=== PATIENT | male | born 1985 | race Caucasian/White ===

== ENCOUNTER → 2016-09-16 | Outpatient (CLI) | payer BC ==
[2016-09-16 12:24] LABS: BASO % 0.8 %; BASO ABS # 0.06 K/uL (0-0.2); COMPLETE YES; EOS % 5.4 %; HEMATOCRIT 47.1 % (42-52); IG% 0.3 %; LYMPH % 25.8 %; LYMPH ABS # 1.91 K/uL (1.2-3.4); MEAN CELL VOLUME 87.1 fL (80-100); MEAN CORPUSCULAR HEMOGLOBIN 29.2 pg (25-34); MEAN CORPUSCULAR HGB CONC 33.5 g/dl (32-36); MEAN PLATELET VOLUME 9.7 fL (7.4-10.4); NEUT % 59.7 %; PLATELET COUNT 259 K/uL (130-400); RED BLOOD COUNT 5.41 M/uL (4.7-6.1); WHITE BLOOD COUNT 7.41 K/uL (4.8-10.8)
[2016-09-16 12:58] LABS: ALT/SGPT 31 U/L (12-78); BLOOD UREA NITROGEN 21 mg/dl (7-18); BUN/CREATININE RATIO 17.6 (10-20); CARBON DIOXIDE 27 mmol/L (21-32); CHLORIDE 108 mmol/L (98-107); CHOLESTEROL 150 mg/dl (0-200); GLUCOSE 90 mg/dl (70-99); POTASSIUM 4.4 mmol/L (3.5-5.1); SODIUM 143 mmol/L (136-145); TRIGLYCERIDES 138 mg/dl (0-150); VERY LOW DENSITY LIPOPROT CALC 28 mg/dl
[2016-09-16 13:10] LABS: CALCIUM 9.6 mg/dl (8.5-10.1)
[2016-09-16 13:22] LABS: ALB/GLOB RATIO 0.8 (0.9-2); ALKALINE PHOSPHATASE 48 U/L (45-117); AST/SGOT 14 U/L (15-37); CHOLESTEROL/HDL RATIO 4.7; HDL CHOLESTEROL 32 mg/dl; LDL CHOLESTEROL CALCULATED 90 mg/dl; PROSTATE SPECIFIC ANTIGEN 0.448 ng/ml (0.000-4.000)
== END | disposition home or self-care (01) ==
LOC: C.LABPBG 08:25
PROVIDERS: ATTEND Neuromusculoskeletal Medicine & OMM
DX: Z00.00 Encounter for general adult medical examination without abnormal findings (principal); R61 Generalized hyperhidrosis; N41.9 Inflammatory disease of prostate, unspecified

== ENCOUNTER → 2017-01-16 | Outpatient (CLI) | payer BC ==
[2017-01-16 17:19] LABS: BASO % 0.9 %; BASO ABS # 0.09 K/uL (0-0.2); COMPLETE YES; EOS % 3.4 %; HEMATOCRIT 44.2 % (42-52); IG% 0.3 %; LYMPH % 20.8 %; MEAN CELL VOLUME 85.3 fL (80-100); MEAN CORPUSCULAR HEMOGLOBIN 30.1 pg (25-34); MEAN CORPUSCULAR HGB CONC 35.3 g/dl (32-36); MEAN PLATELET VOLUME 9.3 fL (7.4-10.4); MONO % 9.7 %; NEUT % 64.9 %; PLATELET COUNT 280 K/uL (130-400); RED BLOOD COUNT 5.18 M/uL (4.7-6.1); WHITE BLOOD COUNT 10.58 K/uL (4.8-10.8)
== END | disposition home or self-care (01) ==
LOC: C.LABPBG 14:20
PROVIDERS: ATTEND Family Medicine
DX: M79.673 Pain in unspecified foot (principal); M79.89 Other specified soft tissue disorders

== ENCOUNTER 2019-04-16 10:23 | Inpatient (IN) ==
[2019-04-16] MEDS ORDERED: METOCLOPRAMIDE HCL INJ 5 MG/ML 2 ML VIAL IV STA (10:50)
[2019-04-16] MEDS ORDERED: DiphenhydrAMINE HCL 50 MG/ML VIAL IV STA ×2 (10:50→14:27)
[2019-04-16] MEDS ORDERED: ACETAMINOPHEN 1,000 MG/100 ML VIAL IV STA (10:50)
[2019-04-16] MEDS ORDERED: SODIUM CHLORIDE 0.9% 1000ML 1,000 ML IV SCH (11:00)
[2019-04-16 11:18] LABS: Basophils # (auto) 0.08 K/uL (0-0.2); Basophils % (auto) 0.6 %; Eosinophils % (auto) 0.8 %; Hematocrit (blood only) 45.1 % (42-52); Hemoglobin 16.3 g/dL (14.0-18.0); Immature Granulocytes # (auto) 0.07 K/uL (0.00-0.02); Immature Granulocytes % (auto) 0.6 %; Lymphocytes % (auto) 24.8 %; Mean Corpuscular Hemoglobin 30.7 pg (25-34); Mean Corpuscular Hgb Conc 36.1 g/dL (32-36); Mean Corpuscular Volume 84.9 fL (80-100); Monocytes # (auto) 1.08 K/uL (0.11-0.59); Monocytes % (auto) 8.6 %; Neutrophils # (auto) 8.08 K/uL (1.4-6.5); Neutrophils % (auto) 64.6 %; Platelet Count 237 K/uL (130-400); RDW Coefficient of Variation 13.3 % (11.5-14.5); Red Blood Count 5.31 M/uL (4.7-6.1); White Blood Count 12.51 K/uL (4.8-10.8)
--- NOTE | 2019-04-16 11:21 | Emergency Department Note ---
History of Present Illness General Chief Complaint: Headache Stated Complaint: SEVERE HEADACHE Source: patient Mode of arrival: ambulatory Limitations: no limitations History of Present Illness Provider complaint: + headache Onset (ago): day(s) 5 Onset description: + sudden, + at rest and + awoke with symptoms Location: + frontal and + neck Severity: severe Maximum Pain Intensity: 10 Current Pain Intensity: 10 Quality: + aching, + throbbing, + steady, + constant, + different than previous headaches and + worst headache of life Relieved By: + nothing Exacerbated By: + exertion, + movement of head/neck, + light and + noise Context: + occurred at rest Associated symptoms: + nausea, + photophobia and + sensitivity to sound Treatments prior to arrival: + other (Steroids) This 33-year-old male patient presents emergency department today, ambulatory, complaining of a severe headache which began on . The patient states that his now associated with tunnel vision and he is having difficulty ambulating due to the pain. He states the headache radiates from the front and behind his eyes to his neck and has been the same since and has not really changed or improved. He has been on a steroid course and has not improved either. The patient was seen as an outpatient today by his PCP and sent to the ED for further evaluation due to the ongoing symptoms. He denies any trauma or injury, but has been seeing a chiropractor for the last month. He most recently saw the chiropractor for an adjustment on Monday with the headache beginning on . The patient denies any fever or recent illness. He has had some mild congestion and nausea associated with the headache. Paris johnson has been using Tylenol without relief. He denies any history of drug use. He indicates that he did not experience significant improvement with migraine cocktails previously. Home Medications Home Medications Medication Instructions Recorded Confirmed Type ondansetron HCl [Zofran] 4 mg PO TID PRN 5 Days #15 tab 04/13/19 04/16/19 Rx prednisone See Rx Instructions .ROUTE 04/13/19 04/16/19 Rx .COMPLEX 4 Days #6 tab acetaminophen [Tylenol] 325 mg PO QID PRN 04/16/19 04/16/19 History allopurinol 300 mg PO QAM 04/16/19 04/16/19 History escitalopram oxalate 10 mg PO QAM 04/16/19 04/16/19 History sumatriptan succinate 50 mg tablet See Rx Instructions PO .COMPLEX 04/16/19 04/16/19 Rx #14 tab Allergies Allergy/AdvReac Type Severity Reaction Status Date / Time No Known Allergies Allergy Verified 04/16/19 10:36 Past Med/Surg History Medical History Anxiety (Chronic) Depression (Chronic) GERD (gastroesophageal reflux disease) (Chronic) Gout (Chronic) Gout (Chronic) Migraine Pneumothorax (Chronic) Thyromegaly (Chronic) Surgical History History of appendectomy History of chest tube placement (Chronic) History of chest tube placement Social History Preferred Language: [place] Ver[place]an Communication Ability: Effective Visual Impairment: No Limitations Hearing Ability: Normal Nitrator Operator Required: No Beliefs That Will Affect Care: None marital status: Single Current Living Situation: Significant Other Current Living Situation Comment: Fiance current occupational status: employed current occupation: bilingual office assistant Feels Safe at Home: Yes Safety Concerns: Feels Safe At This Time Smoking Status: Never smoker Hx Alcohol Use: Yes Alcohol type: beer Hx Substance Use: No Childhood Exposure to Second-Hand Smoke: Yes Dental Care, Regularly: No Physical Activity Frequency: 1-2 Times per Week Seatbelt Use: always Review of Systems A total of 10 systems reviewed and were otherwise negative Physical Exam Vital Signs Vital Signs - 24 hr 04/16/19 10:24 04/16/19 11:32 04/16/19 11:34 Temperature 36.9 C Temperature Source Oral Pulse Rate 62 73 Pulse Rate [Left] 56 L Pulse Rate from SpO2 Sensor 67 Pulse Rhythm [Left] Regular Respiratory Rate 18 17 Respiratory Effort / Characteristics Non-Labored Respiratory Depth Normal Respiratory Pattern Regular Blood Pressure 153/82 H 136/82 Blood Pressure [Left Arm] 136/82 Blood Pressure Mean 105 97 Blood Pressure Mean [Left Arm] 100 Pulse Oximetry 98 97 99 Oxygen Delivery Method Room Air Room Air Room Air Sepsis Recent Fever Within 48 Hours No Sepsis New/Unexplained Change in Mental Status No Sepsis Action Taken by Nursing No Action Required 04/16/19 12:03 04/16/19 12:30 04/16/19 13:00 Temperature Temperature Source Pulse Rate 67 54 L 54 L Pulse Rate [Left] Pulse Rate from SpO2 Sensor 63 53 L 55 L Pulse Rhythm [Left] Respiratory Rate 22 18 18 Respiratory Effort / Characteristics Respiratory Depth Respiratory Pattern Blood Pressure 142/79 H 136/81 137/82 Blood Pressure [Left Arm] Blood Pressure Mean 91 90 94 Blood Pressure Mean [Left Arm] Pulse Oximetry 98 97 96 Oxygen Delivery Method Sepsis Recent Fever Within 48 Hours Sepsis New/Unexplained Change in Mental Status Sepsis Action Taken by Nursing 04/16/19 13:15 04/16/19 14:27 04/16/19 14:30 Temperature Temperature Source Pulse Rate 57 L 68 81 Pulse Rate [Left] Pulse Rate from SpO2 Sensor 57 L 67 Pulse Rhythm [Left] Respiratory Rate 18 20 15 Respiratory Effort / Characteristics Respiratory Depth Respiratory Pattern Blood Pressure 139/85 145/95 H 143/96 H Blood Pressure [Left Arm] Blood Pressure Mean 93 103 105 Blood Pressure Mean [Left Arm] Pulse Oximetry 97 95 Oxygen Delivery Method Sepsis Recent Fever Within 48 Hours Sepsis New/Unexplained Change in Mental Status Sepsis Action Taken by Nursing 04/16/19 15:00 04/16/19 15:30 04/16/19 16:00 Temperature Temperature Source Pulse Rate 68 67 82 Pulse Rate [Left] Pulse Rate from SpO2 Sensor 70 67 85 Pulse Rhythm [Left] Respiratory Rate 17 17 17 Respiratory Effort / Characteristics Respiratory Depth Respiratory Pattern Blood Pressure 134/87 Blood Pressure [Left Arm] Blood Pressure Mean 98 Blood Pressure Mean [Left Arm] Pulse Oximetry 96 96 96 Oxygen Delivery Method Sepsis Recent Fever Within 48 Hours Sepsis New/Unexplained Change in Mental Status Sepsis Action Taken by Nursing 04/16/19 17:21 04/16/19 17:22 04/16/19 17:30 Temperature Temperature Source Pulse Rate 75 98 H 60 Pulse Rate [Left] Pulse Rate from SpO2 Sensor 77 95 H 62 Pulse Rhythm [Left] Respiratory Rate 22 21 19 Respiratory Effort / Characteristics Respiratory Depth Respiratory Pattern Blood Pressure 140/88 144/85 H Blood Pressure [Left Arm] Blood Pressure Mean 109 100 Blood Pressure Mean [Left Arm] Pulse Oximetry 95 95 97 Oxygen Delivery Method Sepsis Recent Fever Within 48 Hours Sepsis New/Unexplained Change in Mental Status Sepsis Action Taken by Nursing 04/16/19 18:00 04/16/19 18:30 Temperature Temperature Source Pulse Rate 72 77 Pulse Rate [Left] Pulse Rate from SpO2 Sensor 66 73 Pulse Rhythm [Left] Respiratory Rate 18 24 Respiratory Effort / Characteristics Respiratory Depth Respiratory Pattern Blood Pressure 142/90 H 153/89 H Blood Pressure [Left Arm] Blood Pressure Mean 108 110 Blood Pressure Mean [Left Arm] Pulse Oximetry 96 96 Oxygen Delivery Method Sepsis Recent Fever Within 48 Hours Sepsis New/Unexplained Change in Mental Status Sepsis Action Taken by Nursing Constitutional WD/WN, vitals as above Eyes PERRL, conjunctivae normal, anicteric sclerae normal accommodation and EOM intact bilaterally; no nystagmus ENMT external ear and nose normal, oropharynx normal Neck trachea midline, no thyromegaly no nuchal rigidity Respiratory normal respiratory effort, lungs clear to auscultation Auscultation: no crackles, no rales, no rhonchi and no wheezes Cardiovascular RRR, no murmur, no edema Heart Sounds: no gallop and no cardiac rub Vessels: no JVD Gastrointestinal (Abdomen) normal bowel sounds, soft, nontender, no hepatosplenomegaly Percussion/Palpation: no guarding Musculoskeletal no cyanosis or clubbing, extremities motor strength 5/5 Head/Neck/Chest: head atraumatic and neck supple Extremities: strength 5/5 throughout Gait: normal gait Skin no rashes, warm and dry no lesions, no ecchymosis and no erythema Neurologic PERRL, EOMI, accommodation nl, no face palsy, no dysarthria normal light touch, pain and propriocept, CN's II-XI intact bilaterally, deep tendon reflexes 2+ bilaterally and moves all extremities Speech / Cognition: normal speech Psychiatric A+Ox3, euthymic affect Orientation: cooperative Lymphatic no lymphadenopathy Course The patient was seen and evaluated as above. Previous medical records reviewed. IV access obtained, labs drawn. Patient medicated with IV fluids, Benadryl, Reglan, IV acetaminophen Imaging performed and reviewed by myself and radiologist as above. Labs reviewed by myself. I discussed the findings with the patient at bedside. He reports no improvement in his symptoms. I discussed the case with my attending. He recommends MR imaging to evaluate for cerebral vein thrombosis. Patient was medicated with 5 mg IV Haldol in 500 cc IV fluids. MRI performed. This was reviewed by myself and radiologist as noted. I discussed the findings with the patient at bedside. The patient was medicated with IV diphenhydramine and morphine. I again discussed the case with my attending physician, recommending lumbar puncture. He did see and evaluate the patient. LP performed by Dr. Terry. See procedure note. Pt. was reassessed and notes pain is now 2/10. He is feeling much better. I did receive a call from the ED charge nurse regarding critical result of el evated white blood cell count on the CSF. I discussed the case again with Dr. terry. We did elect to empirically treat for meningitis while awaiting cultures. I discussed the case and antibiotic regimen recommended with the ED pharmacist, Shruti. Blood cultures ordered. Viral testing including HSV ordered off of the CSF. Lyme ordered off of the CSF. The patient was medicated with IV Decadron, ce ftriaxone, and vancomycin. I discussed the case with Dr. Clark, [facility] hospitalist physician. He did agree to see and evaluate the patient. Please see hospitalist dictation regarding ongoing management and care of this patient. Administered Medications Acetaminophen (Tylenol) 650 mg PO Q4HWA FÉLIX Stop: 05/16/19 19:59 Last Admin: 04/16/19 20:45 Dose: 650 mg Documented by: [id number] Acyclovir Sodium 800 mg/ (Dextrose) 266 mls @ 250 mls/hr IV Q8H FÉLIX; Protocol Stop: 04/26/19 19:59 Last Infusion: 04/17/19 05:39 Dose: 0 mls/hr Documented by: [id number] Admin: 04/17/19 04:33 Dose: 250 mls/hr Documented by: [id number] Infusion: 04/16/19 22:01 Dose: 0 mls/hr Documented by: [id number] Admin: 04/16/19 20:45 Dose: 250 mls/hr Documented by: [id number] Dextrose/Sodium Chloride (D5w And Nss) 1,000 mls @ 125 mls/hr IV .Q8H FÉLIX Stop: 05/16/19 19:59 Last Admin: 04/17/19 04:33 Dose: 125 mls/hr Documented by: [id number] Infusion: 04/17/19 04:33 Dose: 125 mls/hr Documented by: [id number] Admin: 04/16/19 20:45 Dose: 125 mls/hr Documented by: [id number] Ketorolac Tromethamine (Toradol) 30 mg IV Q6H PRN PRN Reason: Pain Stop: 04/21/19 20:53 Last Admin: 04/16/19 21:23 Dose: 30 mg Documented by: [id number] Morphine Sulfate (Morphine Sulfate) 4 mg IV Q4H PRN PRN Reason: Pain Stop: 04/30/19 17:50 Last Admin: 04/17/19 05:37 Dose: 4 mg Documented by: [id number] Admin: 04/16/19 22:05 Dose: 4 mg Documented by: [id number] Zolpidem Tartrate (Ambien) 5 mg PO HS PRN PRN Reason: Sleep Stop: 05/16/19 21:37 Last Admin: 04/16/19 23:01 Dose: 5 mg Documented by: [id number] Discontinued Medications Dexamethasone Sodium Phosphate (Decadron Pf) 10 mg IV NOW ONE Stop: 04/16/19 17:36 Last Admin: 04/16/19 18:11 Dose: 10 mg Documented by: [id number] Diphenhydramine HCl (Benadryl) 25 mg IV NOW STA Stop: 04/16/19 10:51 Last Admin: 04/16/19 11:20 Dose: 25 mg Documented by: [id number] Diphenhydramine HCl (Benadryl) 12.5 mg IV NOW STA Stop: 04/16/19 14:28 Last Admin: 04/16/19 15:03 Dose: 12.5 mg Documented by: [id number] Gadobutrol (Gadavist 65ml) 9 ml IV ONCE PRN PRN Reason: Interaction Checking Stop: 04/20/19 14:07 Last Admin: 04/16/19 14:09 Dose: 9 ml Documented by: [id number] Sodium Chloride (Nss 1000ml) 1,000 mls @ 999 mls/hr IV .Q1H1M FÉLIX Stop: 04/16/19 12:00 Last Infusion: 04/16/19 12:34 Dose: 0 mls/hr Documented by: [id number] Admin: 04/16/19 11:22 Dose: 999 mls/hr Documented by: [id number] Acetaminophen (Ofirmev) 1,000 mg in 100 mls @ 400 mls/hr IV NOW STA Stop: 04/16/19 11:04 Last Infusion: 04/16/19 12:02 Dose: 0 mls/hr Documented by: [id number] Admin: 04/16/19 11:20 Dose: 400 mls/hr Documented by: [id number] Haloperidol Lactate 5 mg/ (Sodium Chloride) 501 mls @ 999 mls/hr IV NOW STA Stop: 04/16/19 12:53 Last Infusion: 04/16/19 13:14 Dose: 0 mls/hr Documented by: [id number] Admin: 04/16/19 12:41 Dose: 999 mls/hr Documented by: [id number] Ceftriaxone Sodium (Rocephin) 2,000 mg in 70 mls @ 140 mls/hr IV NOW STA Stop: 04/16/19 18:04 Last Infusion: 04/16/19 18:42 Dose: 0 mls/hr Documented by: [id number] Admin: 04/16/19 18:11 Dose: 140 mls/hr Documented by: [id number] Vancomycin HCl 1,750 mg/ (Sodium Chloride) 535 mls @ 200 mls/hr IV NOW ONE Stop: 04/16/19 20:15 Last Infusion: 04/16/19 22:02 Dose: 0 mls/hr Documented by: [id number] Admin: 04/16/19 18:57 Dose: 200 mls/hr Documented by: [id number] Ioversol (Optiray 320 125ml) 120 ml IV ONCE PRN PRN Reason: Interaction Checking Stop: 04/20/19 11:46 Last Admin: 04/16/19 11:48 Dose: 120 ml Documented by: [id number] Lidocaine HCl (Buffered Lidocaine 1%) Confirm Administered Dose 20 ml INFIL .STK-MED ONE Stop: 04/16/19 15:13 Last Admin: 04/16/19 17:15 Dose: 20 ml Documented by: [id number] Metoclopramide HCl (Reglan) 10 mg IV NOW STA Stop: 04/16/19 10:51 Last Admin: 04/16/19 11:20 Dose: 10 mg Documented by: [id number] Morphine Sulfate (Morphine Sulfate) 4 mg IV NOW STA Stop: 04/16/19 14:26 Last Admin: 04/16/19 15:03 Dose: 4 mg Documented by: [id number] Zolpidem Tartrate (Ambien) 5 mg PO NOW ONE Stop: 04/17/19 01:54 Last Admin: 04/17/19 02:09 Dose: 5 mg Documented by: [id number] Medical Decision Making Differential Diagnosis + migraine, + tension headache, + subarachnoid hemorrhage, + headache, + meningitis, + sinusitis, + postconcussion syndrome, + normal pressure hydrocephalus, + CVA, + ICH, + SAH, + encephalitis and + tumor Medical Records Attestation: I reviewed the patient's medical records. Home Medications Current Medication List: was personally reviewed by me Laboratory Data Attestation: I reviewed the patient's lab results. Leukocytosis of 12,000. No anemia or thrombocytopenia. ESR mildly elevated at 23. Coags normal. Renal, hepatic function and electrolytes without significant abnormality. Lyme disease testing negative. Magnesium 2.2. Result diagrams: 04/16/19 10:58 04/16/19 10:58 Lab Results 04/16/19 04/16/19 04/16/19 Range/Units 10:58 10:58 10:58 WBC 12.51 H (4.8-10.8) K/uL RBC 5.31 (4.7-6.1) M/uL Hgb 16.3 (14.0-18.0) g/dL Hct 45.1 (42-52) % MCV 84.9 (80-100) fL MCH 30.7 (25-34) pg MCHC 36.1 H (32-36) g/dL RDW Std Deviation 41.0 (36.4-46.3) fL RDW Coeff of Surjit 13.3 (11.5-14.5) % Plt Count 237 (130-400) K/uL MPV 9.0 (7.4-10.4) fL Immature Gran % (Auto) 0.6 % Neut % (Auto) 64.6 % Lymph % (Auto) 24.8 % [place] % (Auto) 8.6 % Eos % (Auto) 0.8 % Baso % (Auto) 0.6 % Immature Gran # (Auto) 0.07 H (0.00-0.02) K/uL Neut # (Auto) 8.08 H (1.4-6.5) K/uL Lymph # (Auto) 3.10 (1.2-3.4) K/uL [place] # (Auto) 1.08 H (0.11-0.59) K/uL Eos # (Auto) 0.10 (0-0.5) K/uL Baso # (Auto) 0.08 (0-0.2) K/uL ESR 23 H (0-14) mm/hr PT 10.5 (9.0-12.0) Seconds INR 1.0 (0.9-1.1) APTT 23.1 (21.0-31.0) Seconds PTT Ratio 0.9 Sodium (136-145) mmol/L Potassium (3.5-5.1) mmol/L Chloride (98-107) mmol/L Carbon Dioxide (21-32) mmol/L Anion Gap (3-11) BUN (7-18) mg/dl Creatinine (0.6-1.4) mg/dl Est Cr Clr Drug Dosing ml/min Est GFR ( Amer) Est GFR (Non-Af Amer) BUN/Creatinine Ratio (10-20) Glucose (70-99) mg/dl Lactate (0.4-2.0) mmol/L Calcium (8.5-10.1) mg/dl Magnesium (1.8-2.4) mg/dl Total Bilirubin (0.2-1) mg/dl AST (15-37) U/L ALT (12-78) U/L Alkaline Phosphatase (45-117) U/L Total Protein (6.4-8.2) gm/dl Albumin (3.4-5.0) gm/dl Globulin (2.5-4.0) gm/dl Albumin/Globulin Ratio (0.9-2) Fld Lyme DNA (PCR) CSF Appearance CSF Color Xanthrochromic CSF WBC (0-5) /uL CSF RBC (0-) /uL CSF Cell Count Tube # CSF Mononuclear WBCs % CSF Chemistry Tube # CSF Glucose (40-70) mg/dl CSF Total Protein (15-45) mg/dl CSF VDRL Lyme Specimen Source Lyme Disease IgG Ab (Negative) Lyme Disease IgM Ab (Negative) 04/16/19 04/16/19 04/16/19 Range/Units 10:58 10:58 10:58 WBC (4.8-10.8) K/uL RBC (4.7-6.1) M/uL Hgb (14.0-18.0) g/dL Hct (42-52) % MCV (80-100) fL MCH (25-34) pg MCHC (32-36) g/dL RDW Std Deviation (36.4-46.3) fL RDW Coeff of Surjit (11.5-14.5) % Plt Count (130-400) K/uL MPV (7.4-10.4) fL Immature Gran % (Auto) % Neut % (Auto) % Lymph % (Auto) % [place] % (Auto) % Eos % (Auto) % Baso % (Auto) % Immature Gran # (Auto) (0.00-0.02) K/uL Neut # (Auto) (1.4-6.5) K/uL Lymph # (Auto) (1.2-3.4) K/uL [place] # (Auto) (0.11-0.59) K/uL Eos # (Auto) (0-0.5) K/uL Baso # (Auto) (0-0.2) K/uL ESR (0-14) mm/hr PT (9.0-12.0) Seconds INR (0.9-1.1) APTT (21.0-31.0) Seconds PTT Ratio Sodium 141 (136-145) mmol/L Potassium 3.8 (3.5-5.1) mmol/L Chloride 110 H (98-107) mmol/L Carbon Dioxide 29 (21-32) mmol/L Anion Gap 2.0 L (3-11) BUN 25 H (7-18) mg/dl Creatinine 1.28 (0.6-1.4) mg/dl Est Cr Clr Drug Dosing 93.6 ml/min Est GFR ( Amer) 85.3 Est GFR (Non-Af Amer) 73.6 BUN/Creatinine Ratio 19.6 (10-20) Glucose 84 (70-99) mg/dl Lactate (0.4-2.0) mmol/L Calcium 9.0 (8.5-10.1) mg/dl Magnesium 2.2 (1.8-2.4) mg/dl Total Bilirubin 0.4 (0.2-1) mg/dl AST 9 L (15-37) U/L ALT 25 (12-78) U/L Alkaline Phosphatase 46 (45-117) U/L Total Protein 8.1 (6.4-8.2) gm/dl Albumin 3.6 (3.4-5.0) gm/dl Globulin 4.5 H (2.5-4.0) gm/dl Albumin/Globulin Ratio 0.8 L (0.9-2) Fld Lyme DNA (PCR) CSF Appearance CSF Color Xanthrochromic CSF WBC (0-5) /uL CSF RBC (0-) /uL CSF Cell Count Tube # CSF Mononuclear WBCs % CSF Chemistry Tube # CSF Glucose (40-70) mg/dl CSF Total Protein (15-45) mg/dl CSF VDRL Lyme Specimen Source Lyme Disease IgG Ab Negative (Negative) Lyme Disease IgM Ab Negative (Negative) 04/16/19 04/16/19 04/16/19 Range/Units 16:22 16:22 16:22 WBC (4.8-10.8) K/uL RBC (4.7-6.1) M/uL Hgb (14.0-18.0) g/dL Hct (42-52) % MCV (80-100) fL MCH (25-34) pg MCHC (32-36) g/dL RDW Std Deviation (36.4-46.3) fL RDW Coeff of Surjit (11.5-14.5) % Plt Count (130-400) K/uL MPV (7.4-10.4) fL Immature Gran % (Auto) % Neut % (Auto) % Lymph % (Auto) % [place] % (Auto) % Eos % (Auto) % Baso % (Auto) % Immature Gran # (Auto) (0.00-0.02) K/uL Neut # (Auto) (1.4-6.5) K/uL Lymph # (Auto) (1.2-3.4) K/uL [place] # (Auto) (0.11-0.59) K/uL Eos # (Auto) (0-0.5) K/uL Baso # (Auto) (0-0.2) K/uL ESR (0-14) mm/hr PT (9.0-12.0) Seconds INR (0.9-1.1) APTT (21.0-31.0) Seconds PTT Ratio Sodium (136-145) mmol/L Potassium (3.5-5.1) mmol/L Chloride (98-107) mmol/L Carbon Dioxide (21-32) mmol/L Anion Gap (3-11) BUN (7-18) mg/dl Creatinine (0.6-1.4) mg/dl Est Cr Clr Drug Dosing ml/min Est GFR ( Amer) Est GFR (Non-Af Amer) BUN/Creatinine Ratio (10-20) Glucose (70-99) mg/dl Lactate (0.4-2.0) mmol/L Calcium (8.5-10.1) mg/dl Magnesium (1.8-2.4) mg/dl Total Bilirubin (0.2-1) mg/dl AST (15-37) U/L ALT (12-78) U/L Alkaline Phosphatase (45-117) U/L Total Protein (6.4-8.2) gm/dl Albumin (3.4-5.0) gm/dl Globulin (2.5-4.0) gm/dl Albumin/Globulin Ratio (0.9-2) Fld Lyme DNA (PCR) Cancelled CSF Appearance CLEAR CSF Color COLORLESS Xanthrochromic NONE CSF WBC 14 H* (0-5) /uL CSF RBC 0 (0-) /uL CSF Cell Count Tube # 3 CSF Mononuclear WBCs 100.0 % CSF Chemistry Tube # 1 CSF Glucose 51 (40-70) mg/dl CSF Total Protein 62.4 H (15-45) mg/dl CSF VDRL Lyme Specimen Source Cancelled Lyme Disease IgG Ab (Negative) Lyme Disease IgM Ab (Negative) 04/16/19 04/16/19 Range/Units 16:22 18:06 WBC (4.8-10.8) K/uL RBC (4.7-6.1) M/uL Hgb (14.0-18.0) g/dL Hct (42-52) % MCV (80-100) fL MCH (25-34) pg MCHC (32-36) g/dL RDW Std Deviation (36.4-46.3) fL RDW Coeff of Surjit (11.5-14.5) % Plt Count (130-400) K/uL MPV (7.4-10.4) fL Immature Gran % (Auto) % Neut % (Auto) % Lymph % (Auto) % [place] % (Auto) % Eos % (Auto) % Baso % (Auto) % Immature Gran # (Auto) (0.00-0.02) K/uL Neut # (Auto) (1.4-6.5) K/uL Lymph # (Auto) (1.2-3.4) K/uL [place] # (Auto) (0.11-0.59) K/uL Eos # (Auto) (0-0.5) K/uL Baso # (Auto) (0-0.2) K/uL ESR (0-14) mm/hr PT (9.0-12.0) Seconds INR (0.9-1.1) APTT (21.0-31.0) Seconds PTT Ratio Sodium (136-145) mmol/L Potassium (3.5-5.1) mmol/L Chloride (98-107) mmol/L Carbon Dioxide (21-32) mmol/L Anion Gap (3-11) BUN (7-18) mg/dl Creatinine (0.6-1.4) mg/dl Est Cr Clr Drug Dosing ml/min Est GFR ( Amer) Est GFR (Non-Af Amer) BUN/Creatinine Ratio (10-20) Glucose (70-99) mg/dl Lactate 1.1 (0.4-2.0) mmol/L Calcium (8.5-10.1) mg/dl Magnesium (1.8-2.4) mg/dl Total Bilirubin (0.2-1) mg/dl AST (15-37) U/L ALT (12-78) U/L Alkaline Phosphatase (45-117) U/L Total Protein (6.4-8.2) gm/dl Albumin (3.4-5.0) gm/dl Globulin (2.5-4.0) gm/dl Albumin/Globulin Ratio (0.9-2) Fld Lyme DNA (PCR) CSF Appearance CSF Color Xanthrochromic CSF WBC (0-5) /uL CSF RBC (0-) /uL CSF Cell Count Tube # CSF Mononuclear WBCs % CSF Chemistry Tube # CSF Glucose (40-70) mg/dl CSF Total Protein (15-45) mg/dl CSF VDRL Cancelled Lyme Specimen Source Lyme Disease IgG Ab (Negative) Lyme Disease IgM Ab (Negative) Imaging Data Radiologist's Impression: CT angio head wo/w, CT angio neck with con HISTORY: 33 years-old Male Headache, neck pain acute headache with neck pain COMPARISON: None available TECHNIQUE: Noncontrast CT of the head was obtained. Additionally, CTA of the head and neck was obtained following the intravenous ministration of 120 mL Optiray 320 IV contrast. 3-D coronal and sagittal MIPS were obtained from the ial data set and were submitted for review. All measurements were obtained according to NASCET criteria. A dose lowering technique was used consistent with the principals of LINNEA. FINDINGS: CT HEAD: No acute intracranial hemorrhage, midline shift, abnormal extra axial collection, acute territorial infarct, hydrocephalus or intracranial mass. No acute calvarial fracture. Aftercare cells and paranasal sinuses are clear. Soft tissues and orbits are unremarkable. CTA HEAD AND NECK: The heart appears be upper limits of normal in size. The imaged opacified pulmonary arterial tree is unremarkable. Three-vessel morphology of aortic arch. Patency of the imaged subclavian arteries. Patent and normal-appearing bilateral common carotid arteries. The bilateral internal carotid arteries are widely patent and within normal limits. The bilateral middle and anterior cerebral arteries appear normal and are patent. Codominant and patent vertebral arteries. The basilar and posterior cerebral arteries are patent and unremarkable. There is no aneurysm, dissection, high- grade stenosis or proximal branch occlusion. Cerebral venous sinuses are patent. There is no abnormal intracranial enhancement identified. The imaged lung apices appear clear without pneumothorax. Unremarkable thyroid. Soft tissues of the neck are unremarkable. Airway appears to be patent. Mild sigmoidal bowing of the nasal septum. Mastoid air cells are clear. Mild mucosal thickening of the maxillary sinuses. Mild uncovertebral spurring of the cervical spine. IMPRESSION: 1. No acute intracranial abnormality. 2. Unremarkable CTA of the head and neck without aneurysm, dissection, high- grade stenosis or proximal branch occlusion. ACT 112: Negative or not required by law. The above report was generated using voice recognition software. It may contain grammatical, syntax or spelling errors. Electronically signed by: Ernst Lovett M.D. 04/16/2019 12:02 PM MR venography head wo con CLINICAL HISTORY: 33 years-old Male presenting with severe headaches for 6 days. TECHNIQUE: MR venography (angiography) of the head was performed without the use of intravenous contrast using 3-D [id number] technique. 3-D volumetric and/or maximum intensity projection (MIP) images were subsequently reconstructed for review. IV contrast: None. Stenosis measurements were based on NASCET-like criteria. COMPARISON: CT head from earlier the same day. FINDINGS: Localizer images: Unremarkable. Normal flow related enhancement in the superior sagittal, straight, transverse, and sigmoid dural venous sinuses. Normal flow related enhancement in the jugular bulbs. Flow related enhancement also evident in the deep cerebral veins including the internal cerebral veins, basal veins of Brittany, and vein of Petros. Flow related enhancement also evident and cortical veins. Limited evaluation of the brain parenchyma within normal limits. IMPRESSION: 1. No evidence of cerebral vein thrombosis. ACT 112: Negative or not required by law. Electronically signed by: Ryan Trivedi M.D. 04/16/2019 2:12 PM MR brain wo/w con HISTORY: 33 years-old Male acute headache acute severe headache COMPARISON: MRV of same day, CTA head neck of same day TECHNIQUE: Multiplanar multisequence MRI of the brain was obtained both with and without the use of 9.0 mL Gadavist FINDINGS: Vat Overhauler localizer images demonstrate no gross extracranial abnormality. There is no restricted diffusion to suggest acute or subacute infarction. Midline structures including the corpus callosum, brainstem, optic chiasm, pituitary and pineal glands appear unremarkable on the sagittal T1 series. There is no cerebellar tonsillar herniation. Imaged cervical spine is unremarkable. Mild enlargement of the adenoid tonsils. Study is mildly motion degraded. No acute intracranial hemorrhage, midline shift, abnormal extra axial collection, hydrocephalus or intracranial mass. No significant T2/FLAIR signal abnormalities of the brain parenchyma identified. No abnormal intra-axial or extra-axial enhancement. The major flow voids at the level of the skull base appear patent. Mastoid air cells are clear. Minimal mucosal thickening of the ethmoid air cells, maxillary sinuses and nasal terminates. Mild rightward bowing and spurring of the nasal septum. The orbits, skull and soft tissues are unremarkable. IMPRESSION: 1. No acute intracranial abnormality. 2. No abnormal enhancement. ACT 112: Negative or not required by law. The above report was generated using voice recognition software. It may contain grammatical, syntax or spelling errors. Electronically signed by: Ernst Lovett M.D. 04/16/2019 2:15 PM Blood Pressure Blood Pressure Findings: Elevated blood pressure Blood Pressure Disposition: elevated BP felt to be situational Head Trauma GCS Score: 15 MDM Narrative This 33-year-old male patient presents emergency department today due to intractable headache for the past 5 days. Patient has been afebrile. He denies any infectious symptoms. He is been to the emergency department 3 times in the past 5 days and has not experienced any relief with migraine cocktails of multiple rounds of medications. The patient had an extensive work-up here in [facility] ED including labs and imaging. He has been seeing a chiropractor, so we did elect to initiate CT imaging to evaluate for dissection. This was negative. Patient was sent for MRI to evaluate for cerebral vein thrombosis or other acute intracranial abnormality. This was negative. The patient's pain did not respond to migraine cocktail, Haldol, or IV fluids. Ultimately, we did elect to perform a lumbar puncture to further evaluate the migraine. This did show an elevated white blood cell count of 14. There was no blood to indicate subarachnoid hemorrhage. Protein was mildly elevated. And concern for possible meningitis, likely viral etiology, however the patient will be empirically st arted on antibiotics and placed on precautions. He will be admitted to the hospitalist service for antibiotic treatment at this time while awaiting cultures. Please see hospitalist dictation regarding ongoing management care of this patient. The chart was completed utilizing ProTip Speech voice recognition software. Grammatical errors, random word insertions, pronoun errors, and incomplete sent ences are an occasional consequence of this system due to software limitations, ambient noise, and hardware issues. Any formal questions or concerns about the content, text, or information contained within the body of this dictation should be directly addressed to the provider for clarification. Impression & Plan Meningitis, Headache, Acute neck pain Discharge Plan Visit Data *Final* Discharge Date/Time: 04/16/19 19:19 Chief Complaint: Headache Stated Complaint: SEVERE HEADACHE ED Provider: Sin Terry ED Midlevel Provider: Karla Diaz Discharge Problem: Meningitis, Headache, Acute neck pain Patient Disposition: Admitted As Inpatient Condition: Good Discharge Instructions Interventions: ED Discharge Assessment Last Done: 04/16/19 19:19 Discharge Problem: Headache Qualifiers: Headache type: unspecified Headache chronicity pattern: acute headache Intractability: intractable Qualified Code(s): R51 - Headache
[2019-04-16 11:31] LABS: Partial Thromboplastin Ratio 0.9; Partial Thromboplastin Time 23.1 Seconds (21.0-31.0); Prothrombin Time 10.5 Seconds (9.0-12.0)
[2019-04-16 11:40] LABS: Albumin Level 3.6 gm/dl (3.4-5.0); BUN Creatinine Ratio 19.6 (10-20); Creatinine Clr Calc Pharmacy 93.6 ml/min; Est GFR (African American) 85.3; Est GFR (Non-African American) 73.6; Potassium 3.8 mmol/L (3.5-5.1)
[2019-04-16 11:42] LABS: Albumin Globulin Ratio 0.8 (0.9-2); Bilirubin,Total 0.4 mg/dl (0.2-1); Globulin 4.5 gm/dl (2.5-4.0); Total Protein 8.1 gm/dl (6.4-8.2)
[2019-04-16] MEDS ORDERED: OPTIRAY 320 125ml IV PRN (11:47)
--- NOTE | 2019-04-16 12:03 | CT Scan Report ---
CT angio head wo/w, CT angio neck with con HISTORY: 33 years-old Male Headache, neck pain acute headache with neck pain COMPARISON: None available TECHNIQUE: Noncontrast CT of the head was obtained. Additionally, CTA of the head and neck was obtain ed following the intravenous ministration of 120 mL Optiray 320 IV contrast. 3-D coronal and sagittal MIPS were obtained from the axial data set and were submitted for review. All measurements were obta ined according to NASCET criteria. A dose lowering technique was used consistent with the principals of LINNEA. FINDINGS: CT HEAD: No acute intracranial hemorrhage, midline shift, abnormal extra axial collection, acute territorial i nfarct, hydrocephalus or intracranial mass. No acute calvarial fracture. Aftercare cells and paranasa l sinuses are clear. Soft tissues and orbits are unremarkable. CTA HEAD AND NECK: The heart appears be upper limits of normal in size. The imaged opacified pulmonary arterial tree is unremarkable. Three-vessel morphology of aortic arch. Patency of the imaged subclavian arteries. Howell nt and normal-appearing bilateral common carotid arteries. The bilateral internal carotid arteries ar e widely patent and within normal limits. The bilateral middle and anterior cerebral arteries appear normal and are patent. Codominant and patent vertebral arteries. The basilar and posterior cerebral arteries are patent and unremarkable. There is no aneurysm, dissection, high-grade stenosis or proximal branch occlusion. Cer ebral venous sinuses are patent. There is no abnormal intracranial enhancement identified. The imaged lung apices appear clear without pneumothorax. Unremarkable thyroid. Soft tissues of the n emiliana are unremarkable. Airway appears to be patent. Mild sigmoidal bowing of the nasal septum. Mastoid air cells are clear. Mild mucosal thickening of the maxillary sinuses. Mild uncovertebral spurring o f the cervical spine. IMPRESSION: 1. No acute intracranial abnormality. 2. Unremarkable CTA of the head and neck without aneurysm, dissection, high-grade stenosis or proxima l branch occlusion. ACT 112: Negative or not required by law. The above report was generated using voice recognition software. It may contain grammatical, syntax o r spelling errors. Electronically signed by: Ernst Lovett M.D. 04/16/2019 12:02 PM
[2019-04-16 12:09] LABS: Lyme Ab IgG w/WB Rflx Negative (Negative); Lyme Ab IgM w/WB Rflx Negative (Negative)
[2019-04-16] MEDS ORDERED: HALOPERIDOL LACTATE 5 MG in SODIUM CHLORIDE 0.9% 500 ML IV STA (12:23)
[2019-04-16] MEDS ORDERED: GADOBUTROL 65ML VIAL IV PRN (14:08)
--- NOTE | 2019-04-16 14:14 | Magnetic Resonance Report ---
MR venography head wo con CLINICAL HISTORY: 33 years-old Male presenting with severe headaches for 6 days. TECHNIQUE: MR venography (angiography) of the head was performed without the use of intravenous contr ast using 3-D [id number] technique. 3-D volumetric and/or maximum intensity projection (MIP) imag es were subsequently reconstructed for review. IV contrast: None. Stenosis measurements were based on NASCET-like criteria. COMPARISON: CT head from earlier the same day. FINDINGS: Localizer images: Unremarkable. Normal flow related enhancement in the superior sagittal, straight, transverse, and sigmoid dural shaheed ous sinuses. Normal flow related enhancement in the jugular bulbs. Flow related enhancement also evid ent in the deep cerebral veins including the internal cerebral veins, basal veins of Brittany, and v ein of Petros. Flow related enhancement also evident and cortical veins. Limited evaluation of the bra in parenchyma within normal limits. IMPRESSION: 1. No evidence of cerebral vein thrombosis. ACT 112: Negative or not required by law. Electronically signed by: Ryan Trivedi M.D. 04/16/2019 2:12 PM
--- NOTE | 2019-04-16 14:17 | Magnetic Resonance Report ---
MR brain wo/w con HISTORY: 33 years-old Male acute headache acute severe headache COMPARISON: MRV of same day, CTA head neck of same day TECHNIQUE: Multiplanar multisequence MRI of the brain was obtained both with and without the use of 9 .0 mL Gadavist FINDINGS: Slot Machine Key Person localizer images demonstrate no gross extracranial abnormality. There is no restricted diffusio n to suggest acute or subacute infarction. Midline structures including the corpus callosum, brainste m, optic chiasm, pituitary and pineal glands appear unremarkable on the sagittal T1 series. There is no cerebellar tonsillar herniation. Imaged cervical spine is unremarkable. Mild enlargement of the ad enoid tonsils. Study is mildly motion degraded. No acute intracranial hemorrhage, midline shift, abnormal extra axia l collection, hydrocephalus or intracranial mass. No significant T2/FLAIR signal abnormalities of the brain parenchyma identified. No abnormal intra-axial or extra-axial enhancement. The major flow void s at the level of the skull base appear patent. Mastoid air cells are clear. Minimal mucosal thickeni ng of the ethmoid air cells, maxillary sinuses and nasal terminates. Mild rightward bowing and spurri ng of the nasal septum. The orbits, skull and soft tissues are unremarkable. IMPRESSION: 1. No acute intracranial abnormality. 2. No abnormal enhancement. ACT 112: Negative or not required by law. The above report was generated using voice recognition software. It may contain grammatical, syntax o r spelling errors. Electronically signed by: Ernst Lovett M.D. 04/16/2019 2:15 PM
[2019-04-16] MEDS ORDERED: MoRPHine SULFATE 4 MG/ML 1 ML CARP\\VIAL IV STA (14:25)
[2019-04-16] MEDS ORDERED: XYLOCAINE 1%/SOD BICARB 20 ML VIAL INFIL ONE (15:12)
--- NOTE | 2019-04-16 16:46 | Emergency Department Note ---
ED Visit Note HPI: Progressively worsening MCKEON over 5 days. No prior history of formally diagnosed migraines. PE: AFVSS, uncomfortable but in NAD, neck supple. Procedures Lumbar Puncture Time Out Performed: Yes Skin Prep: 0.5% Chlorhexidine/Alcohol Local Anesthetic: lidocaine 1% Amount of anesthesia used (mL): 8 Spinal Needle Gauge: 22G Interspace Used: L4-L5 Opening Pressure (cmH20): 17 Fluid Initially Obtained: clear Complications: none Note: 20 cc of clear CSF collected. CSF Cell count, glucose, Albumin, Gram stain and culture ordered. Plan: CT/CTA head negative. MRI/MRV negative. LP performed by myself per procedure note above. CSF WBC elevated at 14, 100% mononuclear predominance., CSF protein 62.4. Admit. Empiric treatment with CTX and Vancomycin while awaiting cultures. I reviewed the patient's past medical history, medications, and visit nursing notes. I discussed the case with the physician dietetic assistant, examined the patient, and agree with the findings and plan as documented in NATALIO Diaz's note. . : Headache Qualifiers: Headache type: unspecified Headache chronicity pattern: acute headache Intractability: intractable Qualified Code(s): R51 - Headache
[2019-04-16 17:05] LABS: Appearance CSF CLEAR; CSF Count Tube # 3; Color CSF COLORLESS
[2019-04-16 17:06] LABS: Red Blood Cell CSF (A) 0 /uL (0-); Red Blood Cell CSF (B) 0 /uL (0-); White Blood Cell CSF (B) 18 /uL (0-5)
[2019-04-16 17:08] LABS: White Blood Cell CSF (A) 14 /uL (0-5)
[2019-04-16 17:10] LABS: Total Protein CSF 62.4 mg/dl (15-45)
[2019-04-16] MEDS ORDERED: VANCOMYCIN HCL 1,750 MG in SODIUM CHLORIDE 0.9% 500 ML IV ONE (17:35)
[2019-04-16] MEDS ORDERED: DEXAMETHASONE **PF** INJ 10 MG/ML VIAL IV ONE (17:35)
[2019-04-16] MEDS ORDERED: cefTRIAXone SODIUM 2,000 MG/70 ML BAG IV STA (17:35)
[2019-04-16] MEDS ORDERED: VANCOMYCIN CONSULT ACTIVE PRN (17:35)
[2019-04-16] MEDS ORDERED: MoRPHine SULFATE 4 MG/ML 1 ML CARP\\VIAL IV PRN (17:51)
--- NOTE | 2019-04-16 18:44 | History & Physical Report ---
Date of Service April 16, 2019 Assessment & Plan (1) Meningitis: Suspected viral meningitis from CSF sample (see below). HSV, enterovirus pending. Will start on acyclovir. No known immunosuppression. Lyme antibodies negative. VDRL pending but no disseminated rash and this is felt to be very low likelihood. Gram stain negative. WBC CSF 14 (all mononuclear), glucose normal and Total protein only mildly elevated at 62 therefore not suggestive of bacterial meningitis. This along with history makes bacterial meningitis a very low likelihood therefore will discontinue further antibiotics at this time. Culture still pending at this time however. Vanc + ceftriaxone given in ER. Keep in dark room. Minimal disturbances. (2) Headache: Suspect viral meningitis as above but given similarities with his previous migraine this is still a possibility. In addition he has a strong tension headache component with his neck pain for which we will consult PT to assist. Will treat with acetaminophen and NSAIDs (3) Depression: Continue Lexapro (4) Gout: Continue allopurinol History of Present Illness Chief Complaint: Intractable headache Primary Care Provider: DO Sanjeev Heltonzeenat Corona is a 33 year old male with a history of migraines who presented to the ER with severe headache. He reports this is mainly across the front of his head, sometimes pounding, occasionally a constant ache, severity 10/10 when he first came to the ER, now 3/10. It started on and has wax and waned since then but generally getting progressively worse. He went to [facility] initially then the ER here 3 days ago and these were felt to be consistent with his prior migraines and he received various cocktails of antihistamines, steroids and Compazine. He reports morphine has worked the best. In the ER here he received a thorough workup including an LP which showed 15 WBC and therefore was started on vancomycin and ceftriaxone for concern for bacterial meningitis. He reports no rash, fevers or chills and is otherwise well other than his ongoing headache. No weakness or change in sensation in his extremities. He has bilateral but left > right sided neck pain but this is not unusual for him. Allergies Allergy/AdvReac Type Severity Reaction Status Date / Time No Known Allergies Allergy Verified 04/16/19 10:36 Home Medications Home Medications Medication Instructions Recorded Confirmed Type ondansetron HCl [Zofran] 4 mg PO TID PRN 5 Days #15 tab 04/13/19 04/16/19 Rx prednisone See Rx Instructions .ROUTE 04/13/19 04/16/19 Rx .COMPLEX 4 Days #6 tab acetaminophen [Tylenol] 325 mg PO QID PRN 04/16/19 04/16/19 History allopurinol 300 mg PO QAM 04/16/19 04/16/19 History escitalopram oxalate 10 mg PO QAM 04/16/19 04/16/19 History sumatriptan succinate 50 mg tablet See Rx Instructions PO .COMPLEX 04/16/19 04/16/19 Rx #14 tab Past Med/Surg History Medical History Anxiety (Chronic) Depression (Chronic) GERD (gastroesophageal reflux disease) (Chronic) Gout (Chronic) Gout (Chronic) Migraine Pneumothorax (Chronic) Thyromegaly (Chronic) Surgical History History of appendectomy History of chest tube placement (Chronic) History of chest tube placement Social History Preferred Language: Uzbek Communication Ability: Effective Visual Impairment: No Limitations Hearing Ability: Normal Steam Cleaning Machine Operator Required: No Beliefs That Will Affect Care: None marital status: Single Current Living Situation: Significant Other Current Living Situation Comment: Fiance current occupational status: employed current occupation: photographer assistant Feels Safe at Home: Yes Safety Concerns: Feels Safe At This Time Smoking Status: Never smoker Hx Alcohol Use: Yes Alcohol type: beer Hx Substance Use: No Childhood Exposure to Second-Hand Smoke: Yes Dental Care, Regularly: No Physical Activity Frequency: 1-2 Times per Week Seatbelt Use: always Review of Systems Review of Systems: All systems reviewed & are unremarkable except as noted in HPI & below Physical Exam Constitutional: well developed, well nourished and + obese; no acute distress Eyes: PERRL, conjunctivae normal, anicteric sclerae ENMT: external ear and nose normal, oropharynx normal Neck: normal visual inspection and trachea midline Respiratory: normal respiratory effort, lungs clear to auscultation Cardiovascular: RRR, no murmur, no edema Gastrointestinal (Abdomen): normal bowel sounds, soft, nontender, no hepatosplenomegaly Musculoskeletal: no cyanosis or clubbing, extremities motor strength 5/5 Skin: no rashes, warm and dry Neurologic: CN's II-XI intact bilaterally, moves all extremities and awake (in darkened room); no focal motor deficits and not confused Speech / Cognition: normal speech Motor/Sensory: no tremor, no pronator drift and no sensory deficit Kernig/Brudzinski signs were negative. Psychiatric: A+Ox3, euthymic affect Lymphatic: no cervical or axillary lymphadenopathy Results & Data Vital Signs (Past 12 Hours) Vital Signs Temp Pulse Pulse Resp BP BP Pulse Ox 04/16/19 17:30 60 19 144/85 H 97 04/16/19 17:22 98 H 21 140/88 95 04/16/19 17:21 75 22 95 04/16/19 16:00 82 17 96 04/16/19 15:30 67 17 96 04/16/19 15:00 68 17 134/87 96 04/16/19 14:30 81 15 143/96 H 04/16/19 14:27 68 20 145/95 H 95 04/16/19 13:15 57 L 18 139/85 97 04/16/19 13:00 54 L 18 137/82 96 04/16/19 12:30 54 L 18 136/81 97 04/16/19 12:03 67 22 142/79 H 98 04/16/19 11:34 99 04/16/19 11:32 73 56 L 17 136/82 136/82 97 04/16/19 10:24 36.9 C 62 18 153/82 H 98 Code Status & VTE Plan Code Status Full VTE Prophylaxis Plan VTE Prophylaxis will be ordered: No Reason for no VTE drug order: Treatment not indicated Reason for no VTE mechanical prophylaxis: Treatment not indicated PG Care Time/CCT Total # of Minutes Spent Total Time Spent with Patient: Total time spent is greater than 50% in coordination of care (as documented) at patient's floor/unit and/or counseling patient: (1) Gout Chronicity: chronic Gout etiology: unspecified cause Gout site: multiple sites Qualified Code(s): [id number].[id number] - Idiopathic chronic gout, multiple sites, without tophus (tophi) (2) Depression Depression Type: unspecified Qualified Code(s): F32.9 - Major depressive disorder, single episode, unspecified (3) Headache Headache chronicity pattern: acute headache Headache type: unspecified Intractability: intractable Qualified Code(s): R51 - Headache
[2019-04-16] MEDS: ACYCLOVIR SOD 800 MG in DEXTROSE 5% 250 ML IV SCH (20:45)
[2019-04-16] MEDS: D5W AND NSS 1,000 ML IV SCH (20:45)
[2019-04-16] MEDS: ACETAMINOPHEN 325 MG TAB PO SCH (20:45)
[2019-04-16] MEDS: KETOROLAC 30 MG/ML VIAL IV PRN (21:23)
[2019-04-16] MEDS: MoRPHine SULFATE 4 MG/ML 1 ML CARP\\VIAL IV PRN (22:05)
[2019-04-16] MEDS: ZOLPIDEM TARTRATE 5 MG TAB PO PRN (23:01)
[2019-04-17] MEDS ORDERED: ZOLPIDEM TARTRATE 5 MG TAB PO ONE (01:53)
[2019-04-17] MEDS: ACYCLOVIR SOD 800 MG in DEXTROSE 5% 250 ML IV SCH ×3 (04:33→20:40)
[2019-04-17] MEDS: D5W AND NSS 1,000 ML IV SCH ×5 (04:33→20:51)
[2019-04-17] MEDS: KETOROLAC 30 MG/ML VIAL IV PRN ×2 (05:34→21:54)
[2019-04-17] MEDS: MoRPHine SULFATE 4 MG/ML 1 ML CARP\\VIAL IV PRN ×3 (05:37→14:20)
[2019-04-17] MEDS: ESCITALOPRAM OXALATE 10 MG TAB PO SCH (08:18)
[2019-04-17] MEDS: allopurinoL 300 MG TAB PO SCH (08:18)
[2019-04-17] MEDS: ACETAMINOPHEN 325 MG TAB PO SCH ×4 (08:18→20:41)
[2019-04-17 08:40] LABS: Hematocrit (blood only) 43.4 % (42-52); Hemoglobin 15.6 g/dL (14.0-18.0); Immature Granulocytes # (auto) 0.05 K/uL (0.00-0.02); Immature Granulocytes % (auto) 0.3 %; Lymphocytes # (auto) 1.43 K/uL (1.2-3.4); Lymphocytes % (auto) 9.6 %; Mean Corpuscular Hemoglobin 29.7 pg (25-34); Mean Corpuscular Hgb Conc 35.9 g/dL (32-36); Mean Corpuscular Volume 82.7 fL (80-100); Mean Platelet Volume 8.8 fL (7.4-10.4); Monocytes # (auto) 0.77 K/uL (0.11-0.59); Monocytes % (auto) 5.1 %; Neutrophils # (auto) 12.71 K/uL (1.4-6.5); Platelet Count 258 K/uL (130-400); RDW Coefficient of Variation 12.9 % (11.5-14.5); RDW Standard Deviation 38.7 fL (36.4-46.3); Red Blood Count 5.25 M/uL (4.7-6.1); White Blood Count 14.96 K/uL (4.8-10.8)
[2019-04-17 09:02] LABS: BUN Creatinine Ratio 17.1 (10-20); Calcium 9.5 mg/dl (8.5-10.1); Creatinine Clr Calc Pharmacy 118.6 ml/min; Potassium 3.9 mmol/L (3.5-5.1)
[2019-04-17] MEDS: LORazepam 0.5 MG TAB PO PRN ×2 (12:18→20:50)
--- NOTE | 2019-04-17 15:18 | Hospitalist Progress Note ---
Date of Service April 17, 2019 Assessment & Plan (1) Meningitis: - Suspected viral meningitis based on CSF sample (WBC 14, Total protein 62.4, normal glucose level). - HSV, Lyme, Enterovirus, Herpes virus, VDRL via CSF pending; gram stain and culture via CSF also pending. - Leukocytosis noted on labs; has been afebrile, normotensive. - Received IV abx in the ER, will hold further doses due to low likelihood of bacterial infection; receiving Acyclovir IV empirically. - On IV fluids at 125 cc/hr. - Continue to monitor, consider neurology consult. (2) Headache: - Likely related to viral meningitis vs. migraine. - May also have component of tension headache -- PT consulted for stretching exercises. - Tylenol q4hr scheduled; Toradol and Morphine prn. (3) Depression: - Continue Lexapro as prescribed. - Ativan prn hospital related anxiety. (4) Gout: - Continue allopurinol as prescribed. DVT ppx: Encourage ambulation. Dispo: Med/surg for treatment of viral meningitis. Supervising Physician Co-Signing Physician Notes Attending Attestation - Chart reviewed in detail, care plan d/w PA Amaris Posey. I agree w/ the rojas components of her documentation. 33yo male with likely viral meningitis. CSF culture thus far negative. Main issue is that of headache - suspect combination of headache from the meningitis itself as well as a migraine. Plan as per Ms Posey. Vitals/labs remain stable. Perry Brizuela MD Subjective Pt. reports headache is slightly improved today. C/o neck stiffness, bilateral in occipital area. Denies chest pain, SOB, fever/chills, N/V. Will continue treatment for viral meningitis. Review of Systems Review of Systems: All systems reviewed & are unremarkable except as noted in HPI & below Constitutional: + fatigue and + weakness; no fever, no chills and no anorexia Respiratory: no cough, no dyspnea and no dyspnea on exertion Cardiovascular: no chest pain, no palpitations and no edema Gastrointestinal: no abdominal pain, no nausea and no constipation Genitourinary: no difficulty urinating Musculoskeletal: + stiffness; no back pain and no joint pain Neurologic: + headache(s) Physical Exam Physical Exam: General: Resting comfortably HEENT: NC/AT; PERRLA with EOMI; Hume conjunctiva, MMM. No erythema of posterior pharynx Neck: Supple and nontender Cardiac: RRR Lungs: CTA bilaterally Abdomen: Bowel normoactive X 4; Nontender to palpation Back: NO spinous tenderness Extremities: Warm. No edema present Neuro: No focal weakness Skin: No rash Results & Data Vital Signs (Past 12 Hours) Vital Signs Temp Pulse Resp BP BP Pulse Ox 04/17/19 15:09 37.0 C 82 17 146/81 H 94 04/17/19 07:40 36.7 C 104 H 18 142/82 H 94 Laboratory Results 04/17/19 04/17/19 04/16/19 Range/Units 08:19 08:19 Unknown WBC 14.96 H (4.8-10.8) K/uL RBC 5.25 (4.7-6.1) M/uL Hgb 15.6 (14.0-18.0) g/dL Hct 43.4 (42-52) % MCV 82.7 (80-100) fL MCH 29.7 (25-34) pg MCHC 35.9 (32-36) g/dL RDW Std Deviation 38.7 (36.4-46.3) fL RDW Coeff of Surjit 12.9 (11.5-14.5) % Plt Count 258 (130-400) K/uL MPV 8.8 (7.4-10.4) fL Immature Gran % (Auto) 0.3 % Neut % (Auto) 85.0 % Lymph % (Auto) 9.6 % Bates % (Auto) 5.1 % Eos % (Auto) 0.0 % Baso % (Auto) 0.0 % Immature Gran # (Auto) 0.05 H (0.00-0.02) K/uL Neut # (Auto) 12.71 H (1.4-6.5) K/uL Lymph # (Auto) 1.43 (1.2-3.4) K/uL Bates # (Auto) 0.77 H (0.11-0.59) K/uL Eos # (Auto) 0.00 (0-0.5) K/uL Baso # (Auto) 0.00 (0-0.2) K/uL Sodium 138 (136-145) mmol/L Potassium 3.9 (3.5-5.1) mmol/L Chloride 107 (98-107) mmol/L Carbon Dioxide 25 (21-32) mmol/L Anion Gap 6.0 (3-11) BUN 20 H (7-18) mg/dl Creatinine 1.17 (0.6-1.4) mg/dl Est Cr Clr Drug Dosing 118.6 ml/min Est GFR ( Amer) 95.0 Est GFR (Non-Af Amer) 82.0 BUN/Creatinine Ratio 17.1 (10-20) Glucose 108 H (70-99) mg/dl Lactate (0.4-2.0) mmol/L Calcium 9.5 (8.5-10.1) mg/dl Fld Lyme DNA (PCR) Pending CSF Appearance CSF Color Xanthrochromic CSF WBC (0-5) /uL CSF RBC (0-) /uL CSF Cell Count Tube # CSF Mononuclear WBCs % CSF Chemistry Tube # CSF Glucose (40-70) mg/dl CSF Total Protein (15-45) mg/dl CSF VDRL Pending Lyme Specimen Source Pending Enterovirus Source Enterovirus Culture Herpes Virus Source HSV I DNA PCR HSV II DNA PCR 04/16/19 04/16/19 04/16/19 Range/Units Unknown 18:06 16:22 WBC (4.8-10.8) K/uL RBC (4.7-6.1) M/uL Hgb (14.0-18.0) g/dL Hct (42-52) % MCV (80-100) fL MCH (25-34) pg MCHC (32-36) g/dL RDW Std Deviation (36.4-46.3) fL RDW Coeff of Surjit (11.5-14.5) % Plt Count (130-400) K/uL MPV (7.4-10.4) fL Immature Gran % (Auto) % Neut % (Auto) % Lymph % (Auto) % Bates % (Auto) % Eos % (Auto) % Baso % (Auto) % Immature Gran # (Auto) (0.00-0.02) K/uL Neut # (Auto) (1.4-6.5) K/uL Lymph # (Auto) (1.2-3.4) K/uL Bates # (Auto) (0.11-0.59) K/uL Eos # (Auto) (0-0.5) K/uL Baso # (Auto) (0-0.2) K/uL Sodium (136-145) mmol/L Potassium (3.5-5.1) mmol/L Chloride (98-107) mmol/L Carbon Dioxide (21-32) mmol/L Anion Gap (3-11) BUN (7-18) mg/dl Creatinine (0.6-1.4) mg/dl Est Cr Clr Drug Dosing ml/min Est GFR ( Amer) Est GFR (Non-Af Amer) BUN/Creatinine Ratio (10-20) Glucose (70-99) mg/dl Lactate 1.1 (0.4-2.0) mmol/L Calcium (8.5-10.1) mg/dl Fld Lyme DNA (PCR) CSF Appearance CSF Color Xanthrochromic CSF WBC (0-5) /uL CSF RBC (0-) /uL CSF Cell Count Tube # CSF Mononuclear WBCs % CSF Chemistry Tube # CSF Glucose (40-70) mg/dl CSF Total Protein (15-45) mg/dl CSF VDRL Cancelled Lyme Specimen Source Enterovirus Source Enterovirus Culture Herpes Virus Source Pending HSV I DNA PCR Pending HSV II DNA PCR Pending 04/16/19 04/16/19 04/16/19 Range/Units 16:22 16:22 16:22 WBC (4.8-10.8) K/uL RBC (4.7-6.1) M/uL Hgb (14.0-18.0) g/dL Hct (42-52) % MCV (80-100) fL MCH (25-34) pg MCHC (32-36) g/dL RDW Std Deviation (36.4-46.3) fL RDW Coeff of Surjit (11.5-14.5) % Plt Count (130-400) K/uL MPV (7.4-10.4) fL Immature Gran % (Auto) % Neut % (Auto) % Lymph % (Auto) % Bates % (Auto) % Eos % (Auto) % Baso % (Auto) % Immature Gran # (Auto) (0.00-0.02) K/uL Neut # (Auto) (1.4-6.5) K/uL Lymph # (Auto) (1.2-3.4) K/uL Bates # (Auto) (0.11-0.59) K/uL Eos # (Auto) (0-0.5) K/uL Baso # (Auto) (0-0.2) K/uL Sodium (136-145) mmol/L Potassium (3.5-5.1) mmol/L Chloride (98-107) mmol/L Carbon Dioxide (21-32) mmol/L Anion Gap (3-11) BUN (7-18) mg/dl Creatinine (0.6-1.4) mg/dl Est Cr Clr Drug Dosing ml/min Est GFR ( Amer) Est GFR (Non-Af Amer) BUN/Creatinine Ratio (10-20) Glucose (70-99) mg/dl Lactate (0.4-2.0) mmol/L Calcium (8.5-10.1) mg/dl Fld Lyme DNA (PCR) Cancelled CSF Appearance CLEAR CSF Color COLORLESS Xanthrochromic NONE CSF WBC 14 H* (0-5) /uL CSF RBC 0 (0-) /uL CSF Cell Count Tube # 3 CSF Mononuclear WBCs 100.0 % CSF Chemistry Tube # CSF Glucose (40-70) mg/dl CSF Total Protein (15-45) mg/dl CSF VDRL Lyme Specimen Source Cancelled Enterovirus Source Pending Enterovirus Culture Pending Herpes Virus Source HSV I DNA PCR HSV II DNA PCR 04/16/19 Range/Units 16:22 WBC (4.8-10.8) K/uL RBC (4.7-6.1) M/uL Hgb (14.0-18.0) g/dL Hct (42-52) % MCV (80-100) fL MCH (25-34) pg MCHC (32-36) g/dL RDW Std Deviation (36.4-46.3) fL RDW Coeff of Surjit (11.5-14.5) % Plt Count (130-400) K/uL MPV (7.4-10.4) fL Immature Gran % (Auto) % Neut % (Auto) % Lymph % (Auto) % Bates % (Auto) % Eos % (Auto) % Baso % (Auto) % Immature Gran # (Auto) (0.00-0.02) K/uL Neut # (Auto) (1.4-6.5) K/uL Lymph # (Auto) (1.2-3.4) K/uL Bates # (Auto) (0.11-0.59) K/uL Eos # (Auto) (0-0.5) K/uL Baso # (Auto) (0-0.2) K/uL Sodium (136-145) mmol/L Potassium (3.5-5.1) mmol/L Chloride (98-107) mmol/L Carbon Dioxide (21-32) mmol/L Anion Gap (3-11) BUN (7-18) mg/dl Creatinine (0.6-1.4) mg/dl Est Cr Clr Drug Dosing ml/min Est GFR ( Amer) Est GFR (Non-Af Amer) BUN/Creatinine Ratio (10-20) Glucose (70-99) mg/dl Lactate (0.4-2.0) mmol/L Calcium (8.5-10.1) mg/dl Fld Lyme DNA (PCR) CSF Appearance CSF Color Xanthrochromic CSF WBC (0-5) /uL CSF RBC (0-) /uL CSF Cell Count Tube # CSF Mononuclear WBCs % CSF Chemistry Tube # 1 CSF Glucose 51 (40-70) mg/dl CSF Total Protein 62.4 H (15-45) mg/dl CSF VDRL Lyme Specimen Source Enterovirus Source Enterovirus Culture Herpes Virus Source HSV I DNA PCR HSV II DNA PCR PG Care Time/CCT Total # of Minutes Spent Total Time Spent with Patient: Total time spent is greater than 50% in coordination of care (as documented) at patient's floor/unit and/or counseling patient: (1) Gout Chronicity: chronic Gout etiology: unspecified cause Gout site: multiple sites Qualified Code(s): M1A.09X0 - Idiopathic chronic gout, multiple sites, without tophus (tophi) (2) Depression Depression Type: unspecified Qualified Code(s): F32.9 - Major depressive disorder, single episode, unspecified (3) Headache Headache chronicity pattern: acute headache Headache type: unspecified Intractability: intractable Qualified Code(s): R51 - Headache
[2019-04-17] MEDS ORDERED: ALUMINUM/MAGNESIUM SUSP 30 ML UDC PO PRN (17:52)
[2019-04-17] MEDS: PANTOprazole 40 MG TAB PO SCH (18:55)
[2019-04-17] MEDS ORDERED: LORazepam 0.5 MG/1 ML VIAL IV ONE (22:30)
[2019-04-18] MEDS: MoRPHine SULFATE 4 MG/ML 1 ML CARP\\VIAL IV PRN (02:33)
[2019-04-18] MEDS: ACYCLOVIR SOD 800 MG in DEXTROSE 5% 250 ML IV SCH ×3 (04:20→20:39)
[2019-04-18] MEDS: KETOROLAC 30 MG/ML VIAL IV PRN ×2 (04:29→10:42)
[2019-04-18 05:58] LABS: Hematocrit (blood only) 39.8 % (42-52); Hemoglobin 14.2 g/dL (14.0-18.0); Mean Corpuscular Hemoglobin 29.7 pg (25-34); Mean Corpuscular Hgb Conc 35.7 g/dL (32-36); Mean Corpuscular Volume 83.3 fL (80-100); Mean Platelet Volume 8.7 fL (7.4-10.4); Platelet Count 218 K/uL (130-400); RDW Standard Deviation 39.1 fL (36.4-46.3); Red Blood Count 4.78 M/uL (4.7-6.1); White Blood Count 10.37 K/uL (4.8-10.8)
[2019-04-18 06:38] LABS: BUN Creatinine Ratio 15.3 (10-20); Calcium 8.7 mg/dl (8.5-10.1); Creatinine Clr Calc Pharmacy 120.7 ml/min; Est GFR (African American) 97.1; Est GFR (Non-African American) 83.7; Potassium 3.7 mmol/L (3.5-5.1)
[2019-04-18] MEDS: ACETAMINOPHEN 325 MG TAB PO SCH ×4 (07:23→20:39)
[2019-04-18] MEDS: D5W AND NSS 1,000 ML IV SCH ×2 (07:28→20:38)
[2019-04-18] MEDS: allopurinoL 300 MG TAB PO SCH (09:32)
[2019-04-18] MEDS: PANTOprazole 40 MG TAB PO SCH (09:32)
[2019-04-18] MEDS: ESCITALOPRAM OXALATE 10 MG TAB PO SCH (09:32)
--- NOTE | 2019-04-18 14:18 | Hospitalist Progress Note ---
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 - Tylenol; Toradol; Dilaudid PRN (possibility of morphine increasing headache) - If limited improvement consider neurology consultation (3) Depression: - Continue Lexapro 10 mg daily; Ativan PRN (4) Gout: - Continue Allopurinol 300 mg daily DVT prophylaxis: Ambulation Disposition: Ongoing monitoring due to symptoms Supervising Physician Co-Signing Physician Notes Attending Attestation - Chart reviewed in detail, care plan d/w MELISSA Avalos. I agree w/ the rojas components of her documentation. 33yo male with likely viral meningitis. CSF culture negative; antibiotics discontinued. HSV PCR still pending; continue acyclovir until HSV has returned. Treat ongoing headache. No features to suggest spinal headache/CSF leak. Vitals/labs remain stable. Perry Brizuela MD Subjective Reports feeling about the same at this time. Continues to have a headache. States he feels he is hearing normally but seems "robotic" when people are talking to him. Feels he has a lot of head pressure. Continues to have light sensitivity. No noted fevers but reports some night sweats overnight. He denies any new symptoms. Eating and drinking without issue. Review of Systems Constitutional: + fatigue and + weakness; no fever, no chills and no anorexia Eyes: + photophobia; no worsening vision Ear, Nose, Mouth, Throat: no ear pain "robotic" sounding hearing Respiratory: no cough and no dyspnea Cardiovascular: no chest pain, no palpitations and no edema Gastrointestinal: no abdominal pain, no nausea, no vomiting, no constipation and no diarrhea/loose stools Genitourinary: no dysuria Musculoskeletal: + stiffness; no back pain and no joint pain Integumentary: no rash Neurologic: + headache(s) Physical Exam Constitutional: well developed, well nourished and + ill appearing; no acute distress Eyes: PERRL and + photophobia Neck: negative Brudzinski's sign and no nuchal rigidity Respiratory: normal respiratory effort, lungs clear to auscultation Cardiovascular: RRR, no murmur, no edema Gastrointestinal (Abdomen): Inspection/Auscultation: normal bowel sounds Percussion/Palpation: abdomen soft; abdomen nontender Musculoskeletal: Head/Neck/Chest: normocephalic and head atraumatic Skin: no rashes, warm and dry Neurologic: moves all extremities Psychiatric: Orientation: alert and oriented x 3 Results & Data Vital Signs (Past 12 Hours) Vital Signs Temp Pulse Resp BP Pulse Ox 04/18/19 07:28 36.8 C 70 18 157/79 H 96 PG Care Time/CCT Total # of Minutes Spent Total Time Spent with Patient: Total time spent is greater than 50% in coordination of care (as documented) at patient's floor/unit and/or counseling patient: (1) Gout Chronicity: chronic Gout etiology: unspecified cause Gout site: multiple sites Qualified Code(s): M1A.09X0 - Idiopathic chronic gout, multiple sites, without tophus (tophi) (2) Depression Depression Type: unspecified Qualified Code(s): F32.9 - Major depressive disorder, single episode, unspecified (3) Headache Headache chronicity pattern: acute headache Headache type: unspecified Intractability: intractable Qualified Code(s): R51 - Headache
[2019-04-18] MEDS: HYDROmorphone INJ 0.5 MG/0.5 ML SYR IV PRN ×3 (14:29→22:22)
--- NOTE | 2019-04-18 17:40 | CT Scan Report ---
CT head/brain wo con CLINICAL HISTORY: 33 years-old Male with Viral Meningitis; Acute Sensory changes. Acutely altered me ntal status TECHNIQUE: Multiple axial CT images of the head were obtained without contrast. A dose lowering tech nique was utilized adhering to the principles of ALARA. CT DOSE: 537.48 mGy.cm COMPARISON: Brain MRI 04/16/2019, CTA head 04/16/2019 FINDINGS: No acute intracranial hemorrhage, midline shift, intracranial mass, hydrocephalus, territorial ischem ia or abnormal extra-axial collection. The calvarium is intact. The paranasal sinuses, mastoid air cells, and middle ear cavities are clear . IMPRESSION: No acute intracranial abnormality. ACT 112: Negative or not required by law. The above report was generated using voice recognition software. It may contain grammatical, syntax o r spelling errors. Electronically signed by: Ernst Lovett M.D. 04/18/2019 5:39 PM
[2019-04-19] MEDS: ZOLPIDEM TARTRATE 5 MG TAB PO PRN (00:01)
[2019-04-19] MEDS: HYDROmorphone INJ 0.5 MG/0.5 ML SYR IV PRN ×4 (02:31→14:40)
[2019-04-19] MEDS: ACYCLOVIR SOD 800 MG in DEXTROSE 5% 250 ML IV SCH ×3 (03:23→20:17)
[2019-04-19] MEDS: KETOROLAC 30 MG/ML VIAL IV PRN ×2 (04:16→16:55)
[2019-04-19] MEDS: ACETAMINOPHEN 325 MG TAB PO SCH ×4 (07:46→20:14)
[2019-04-19] MEDS ORDERED: ONDANSETRON 4 MG OD TAB PO PRN (08:34)
[2019-04-19] MEDS: PANTOprazole 40 MG TAB PO SCH (08:52)
[2019-04-19] MEDS: allopurinoL 300 MG TAB PO SCH (08:52)
[2019-04-19] MEDS: ESCITALOPRAM OXALATE 10 MG TAB PO SCH (08:52)
[2019-04-19] MEDS: D5W AND NSS 1,000 ML IV SCH (10:57)
[2019-04-19 11:14] LABS: HSV Type 1 DNA Not Detected (Not Detected); HSV Type 1&2 DNA Source CSF; HSV Type 2 DNA Not Detected (Not Detected)
[2019-04-19 15:53] LABS: Hematocrit (blood only) 41.6 % (42-52); Hemoglobin 15.2 g/dL (14.0-18.0); Mean Corpuscular Hemoglobin 30.3 pg (25-34); Mean Corpuscular Hgb Conc 36.5 g/dL (32-36); Mean Corpuscular Volume 82.9 fL (80-100); Mean Platelet Volume 8.7 fL (7.4-10.4); Platelet Count 231 K/uL (130-400); RDW Standard Deviation 38.8 fL (36.4-46.3); Red Blood Count 5.02 M/uL (4.7-6.1); White Blood Count 10.67 K/uL (4.8-10.8)
[2019-04-19 16:10] LABS: Calcium 9.1 mg/dl (8.5-10.1); Est GFR (African American) 87.7; Est GFR (Non-African American) 75.7; Potassium 4.1 mmol/L (3.5-5.1)
[2019-04-19] MEDS ORDERED: PROMETHAZINE HCL 12.5 MG in SODIUM CHLORIDE 0.9% 50 ML IV ONE (18:15)
[2019-04-19] MEDS ORDERED: SUMAtriptan succinate 6 MG/0.5 ML VIAL SQ ONE (18:15)
--- NOTE | 2019-04-19 20:23 | Hospitalist Progress Note ---
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; also had a recent chiropractic adjustment a couple days prior to headache beginning - Lyme and enterovirus; gram stain of CSF negative; leukocytosis resolved and afebrile; normotensive - HSV not detected, mono test negative - Continue Acyclovir 800 mg Q8H; holding on Abx currently as low likelihood of bacterial infection - Continue IVF at 80 mL/hr - likely can stop tomorrow (2) Headache: - Ongoing - associated photophobia; complaining of "robotic" sounds to voices that started this yesterday but improving -- Possibly related to meningitis vs migraine (has had in the past) vs spinal headache from LP (unlikely as not worsened with standing? - Tylenol; Toradol; Improved this evening with Imitrex SC - will try and avoid opiates as they could be adding to symptoms - If ongoing issues can use steroids (was used as outpatient and he felt it made his headache worse) or loading dose of Depakote per discussion with neuro (3) Depression: - Continue Lexapro 10 mg daily; Ativan PRN (4) Gout: - Continue Allopurinol 300 mg daily DVT prophylaxis: Ambulation Disposition: Ongoing monitoring due to symptoms and await improvement Supervising Physician Co-Signing Physician Notes Attending Attestation - Pt seen/examined, chart reviewed in detail, care plan d/w MELISSA Avalos. I agree w/ the rojas components of her documentation. Patient continues to have headache. Bifrontal/temporal, behind the eyes, associated with photophobia. He has had some hearing changes in the right ear only. Hearing L ear is normal. Some tinnitus left ear. He has had headaches since he was a child. He has had nausea with some of his past headaches. Headache is NOT worsened by standing up. Eating fine. VSS, afebrile gen - NAD, nontoxic neck - no meningismus heart - RRR, s1 s2, no murmur lungs - CTA b/l abd - soft NT ND BS+ no HSM ext - no edema neuro - strength 5/5 x 4 exts labs - CSF HSV PCR negative CSF culture negative A/P: 1. viral meningitis - HSV PCR is neg; can stop acyclovir. Enterovirus culture from CSF pending. 2. status headache - likely combination of headache from meningitis itself as well as status migraine. Imitrex 6mg SC x 1 then re-eval. Consider steroids. Perry Brizuela MD Subjective Reports headache is more bothersome today as pain medications do not seem to be doing the trick. SOme dizziness and nausea today. Robotic sound voices are improving. Did give dose of Imitrex with good response. Verbalizes no new complaints Review of Systems Constitutional: + fatigue; no fever, no chills and no anorexia Eyes: + photophobia; no worsening vision Ear, Nose, Mouth, Throat: no nasal congestion, no sore throat, no hoarseness and no neck lump "robotic" sounding hearing - resolving Respiratory: no cough and no dyspnea Cardiovascular: no chest pain Gastrointestinal: no abdominal pain, no nausea, no vomiting, no constipation and no diarrhea/loose stools Genitourinary: no dysuria Musculoskeletal: + stiffness; no back pain and no joint pain Integumentary: no rash Neurologic: + dizziness and + headache(s) Physical Exam Constitutional: well developed, well nourished and + ill appearing; no acute distress Eyes: PERRL and + photophobia Neck: negative Brudzinski's sign and no nuchal rigidity Respiratory: normal respiratory effort, lungs clear to auscultation Cardiovascular: RRR, no murmur, no edema Gastrointestinal (Abdomen): Inspection/Auscultation: normal bowel sounds Percussion/Palpation: abdomen soft; abdomen nontender Musculoskeletal: Head/Neck/Chest: normocephalic and head atraumatic Skin: no rashes, warm and dry Neurologic: moves all extremities Psychiatric: Orientation: alert and oriented x 3 Results & Data Vital Signs (Past 12 Hours) Vital Signs Temp Pulse Resp BP Pulse Ox 04/19/19 15:49 36.4 C L 66 17 140/89 97 PG Care Time/CCT Total # of Minutes Spent Total Time Spent with Patient: Total time spent is greater than 50% in coordination of care (as documented) at patient's floor/unit and/or counseling patient: (1) Gout Chronicity: chronic Gout etiology: unspecified cause Gout site: multiple sites Qualified Code(s): M1A.09X0 - Idiopathic chronic gout, multiple sites, without tophus (tophi) (2) Depression Depression Type: unspecified Qualified Code(s): F32.9 - Major depressive disorder, single episode, unspecified (3) Headache Headache chronicity pattern: acute headache Headache type: unspecified Intractability: intractable Qualified Code(s): R51 - Headache
[2019-04-20] MEDS: D5W AND NSS 1,000 ML IV SCH (00:16)
[2019-04-20] MEDS: KETOROLAC 30 MG/ML VIAL IV PRN (00:16)
[2019-04-20] MEDS: LORazepam 0.5 MG TAB PO PRN ×2 (00:17→23:30)
[2019-04-20] MEDS: ACYCLOVIR SOD 800 MG in DEXTROSE 5% 250 ML IV SCH ×3 (04:25→20:29)
[2019-04-20] MEDS: ACETAMINOPHEN 325 MG TAB PO SCH ×4 (07:57→20:29)
[2019-04-20] MEDS: allopurinoL 300 MG TAB PO SCH (09:26)
[2019-04-20] MEDS: PANTOprazole 40 MG TAB PO SCH (09:26)
[2019-04-20] MEDS: ESCITALOPRAM OXALATE 10 MG TAB PO SCH (09:26)
[2019-04-20] MEDS: SUMAtriptan succinate 6 MG/0.5 ML VIAL SQ PRN ×2 (10:26→22:27)
--- NOTE | 2019-04-20 17:16 | Hospitalist Progress Note ---
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; also had a recent chiropractic adjustment a couple days prior to headache beginning - Lyme and enterovirus; gram stain of CSF negative; leukocytosis resolved and afebrile; normotensive - HSV not detected, mono test negative - Continue Acyclovir 800 mg Q8H; holding on Abx currently as low likelihood of bacterial infection (2) Headache: - Finally improving - likely secondary migraine which did respond to SC Imitrex - less photophobia and less "robotic" sounds - Imitrex PRN but hopefully this will fully abort - Tylenol; Toradol; will try and avoid opiates as they could be adding to symptoms - If ongoing issues can use steroids (was used as outpatient and he felt it made his headache worse) or loading dose of Depakote per discussion with neuro (3) Depression: - Continue Lexapro 10 mg daily; Ativan PRN (4) Gout: - Continue Allopurinol 300 mg daily DVT prophylaxis: Ambulation Disposition: Pending continued improvement, possible D/C tomorrow Supervising Physician Co-Signing Physician Notes Attending Attestation - Chart reviewed in detail, care plan d/w MELISSA Avalos. I agree w/ the rojas components of her documentation. Headache much improved s/p imitrex yesterday. Overall patient is feeling much better. Viral meningitis clinically resolving. Anticipate d/c home tomorrow. Perry Brizuela MD Subjective Reports feeling better today then he has this whole time. Sumatriptan seemed to help abort the headache. Tolerating diet without issue. Eye pressure improved. Having less photophobia today. "Robotic" sounding hearing is improving but still present. Verbalizes no new complaints at this time. Review of Systems Constitutional: no fever, no chills and no anorexia Eyes: + photophobia (improving); no worsening vision Ear, Nose, Mouth, Throat: no nasal congestion and no sore throat "robotic" sounding hearing - resolving Respiratory: no cough and no dyspnea Cardiovascular: no chest pain, no lightheadedness and no edema Gastrointestinal: no abdominal pain, no nausea, no vomiting, no constipation and no diarrhea/loose stools Genitourinary: no dysuria Musculoskeletal: no back pain and no body aches Integumentary: no rash Neurologic: + dizziness and + headache(s) (significantly ) Physical Exam Constitutional: well developed, well nourished and + ill appearing; no acute distress Eyes: PERRL and + photophobia Neck: negative Brudzinski's sign and no nuchal rigidity Respiratory: normal respiratory effort, lungs clear to auscultation Cardiovascular: RRR, no murmur, no edema Gastrointestinal (Abdomen): Inspection/Auscultation: normal bowel sounds Percussion/Palpation: abdomen soft; abdomen nontender Musculoskeletal: Head/Neck/Chest: normocephalic and head atraumatic Skin: no rashes, warm and dry Neurologic: moves all extremities Psychiatric: Orientation: alert and oriented x 3 Results & Data Vital Signs (Past 12 Hours) Vital Signs Temp Pulse Resp BP BP Pulse Ox 04/20/19 15:27 37.4 C 76 16 155/81 H 95 04/20/19 07:49 36.7 C 62 15 145/82 H 97 PG Care Time/CCT Total # of Minutes Spent Total Time Spent with Patient: Total time spent is greater than 50% in coordination of care (as documented) at patient's floor/unit and/or counseling patient: (1) Gout Chronicity: chronic Gout etiology: unspecified cause Gout site: multiple sites Qualified Code(s): M1A.09X0 - Idiopathic chronic gout, multiple sites, without tophus (tophi) (2) Depression Depression Type: unspecified Qualified Code(s): F32.9 - Major depressive disorder, single episode, unspecified (3) Headache Headache chronicity pattern: acute headache Headache type: unspecified Intractability: intractable Qualified Code(s): R51 - Headache
[2019-04-20 20:47] LABS: Lyme DNA PCR CSF or Synovial Not detected (Not Detected); Lyme DNA Source CSF; VDRL Qualitative CSF Nonreactive (Nonreactive)
[2019-04-21] MEDS: ACYCLOVIR SOD 800 MG in DEXTROSE 5% 250 ML IV SCH ×2 (03:59→11:56)
[2019-04-21] MEDS: KETOROLAC 30 MG/ML VIAL IV PRN (05:50)
[2019-04-21] MEDS: ESCITALOPRAM OXALATE 10 MG TAB PO SCH (08:29)
[2019-04-21] MEDS: ACETAMINOPHEN 325 MG TAB PO SCH ×2 (08:29→11:54)
[2019-04-21] MEDS: PANTOprazole 40 MG TAB PO SCH (08:29)
[2019-04-21] MEDS: allopurinoL 300 MG TAB PO SCH (08:29)
[2019-04-21] MEDS: SUMAtriptan succinate 6 MG/0.5 ML VIAL SQ PRN (10:36)
--- NOTE | 2019-04-21 13:53 | Discharge Summary ---
Date of Service April 21, 2019 Admission HPI Per Admitting Provider Nick Corona is a 33 year old male with a history of migraines who presented to the ER with severe headache. He reports this is mainly across the front of his head, sometimes pounding, occasionally a constant ache, severity 10/10 when he first came to the ER, now 3/10. It started on and has wax and waned since then but generally getting progressively worse. [facility] then the ER here 3 days ago and these were felt to be consistent with his prior migraines and he received various cocktails of antihistamines, steroids and Compazine. He reports morphine has worked the best. In the ER here he received a thorough workup including an LP which showed 14 WBC and therefore was started on vancomycin and ceftriaxone for concern for bacterial meningitis. He reports no rash, fevers or chills and is otherwise well other than his ongoing headache. No weakness or change in sensation in his extremities. He has bilateral but left > right sided neck pain but this is not unusual for him. Principal Diagnosis Viral Meningitis; Migraine Discharge Exam Constitutional WD/WN, vitals as above not ill appearing Eyes + anicteric sclerae and PERRL; no photophobia ENMT Ears: no hearing impairment Neck trachea midline; negative Brudzinski's sign and no nuchal rigidity Respiratory normal respiratory effort, lungs clear to auscultation Cardiovascular RRR, no murmur, no edema Gastrointestinal (Abdomen) Inspection/Auscultation: normal bowel sounds Percussion/Palpation: abdomen soft; abdomen nontender Musculoskeletal Head/Neck/Chest: normocephalic and head atraumatic Extremities: no cyanosis and no clubbing Skin no rashes, warm and dry Neurologic moves all extremities Psychiatric A+Ox3, euthymic affect Discharge Data Allergies Allergy/AdvReac Type Severity Reaction Status Date / Time No Known Allergies Allergy Verified 04/16/19 10:36 Consultations 04/16/19 17:50 ED Decision to Admit Stat Ordered Studies 04/16/19 10:51 CT angio head wo/w Stat CT angio neck with con Stat 04/16/19 12:18 MR brain wo/w con Stat MR venography head wo con Stat 04/18/19 16:35 CT head/brain wo con Routine Hospital Course (1) Meningitis: - Suspect viral meningitis - CSF with elevated WBC at 14, elevated protein at 62.4, normal glucose -- 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; also had a recent chiropractic adjustment a couple days prior to headache beginning - Specific viral etiology testing negative/not detected - Enterovirus pending - HSV not detected, mono test negative - Utilized Acyclovir during admission - HSV is negative but will complete a course with oral pills - CSF Cx negative for bacterial growth (2) Headache: - Nearly resolved - likely secondary migraine which did respond to SC Imitrex - no photophobia and less "robotic" sounds; may have some tension component as a heating pad did help -- It appears the robotic sounds were only with certain peoples voices and improved when not talking through masks so uncertain cause and did discuss with neuro but no specific findings to explain this - Imitrex PRN - Will given Medrol dosepak if needed for ongoing pain (3) Depression: - Continue Lexapro 10 mg daily (4) Gout: - Continue Allopurinol 300 mg daily Disposition: FMLA paperwork filled out; PCP F/U and neurology follow-up if ongoing issues or frequent migraines Total Time Total Time Spent Total Time Spent (In Minutes): Greater than 30 minutes Discharge Plan Discharge Items Patient Disposition: Home - Self-Care Reason For Visit: VIRAL MENINGITIS, HEADACHE Discharge Diagnosis: Viral Meningitis; Migraine Condition on Discharge: Good Activity: Resume your previous activity Non-emergency contact: Primary Care Provider Call non-emergency contact if: you have any medication questions, your symptoms worsen and you have a fever Follow-up/Referrals: Nichol Jenkins DO [Primary Care Provider] - Diet: Regular Addtl Attending Provider Instructions: Viral Meningitis: - You had a lumber puncture that revealed findings to suggest viral meningitis. Thankfully the culture and spinal fluid did not reveal a bacterial source. - There are numerous viruses out there and only limited tested to isolate them and we did not find the exact one that it was. Thankfully viruses normally just run their own course and a lot of times do not need treatment. - Your lyme, herpes simplex was negative, mono test was negative. Enterococccus is pending which is the most likely cause of meningitis but again it can be another virus - You were started on acyclovir which is an antiviral. Typically this is more used for herpes simplex and this was negative however will complete a course. - Please read the hand out on viral meningitis. Headache: - Likely this was multifactorial. One being the meningitis but you likely had a migraine as well - We used Imitrex which stopped the majority of the headache. You were prescribed this in pill form by your family doctor -- You can use one tablet of this with the onset of headache and can repeat in 2 hours if needed. Not to exceed 4 tablets a day - The headache may continue a couple more days but should continue to get better - Some may also be related to tension headache and maybe sleeping in a more comfortable bed; heating pad; warm showers will help with this - If you continue to have recurrent headaches you may benefit from a referral to the neurologist to help find ways to prevent them from happening. Your family doctor can help arrange this if it is needed - Will send an Rx for a steroid dosepak if the headache continues. Only fill if needed Hearing: - The robotic sounds is rather unique and seems to have been more prevalent when your headache was worse but as we tested it may also have been from talking through masks as it seemed to improve when it was lifted off. - If this doesnt resolve please discuss with your family doctor or if worsens get checked out. You may either need an ear, nose, throat referral or again maybe neurology Pending Studies at Discharge: No Stand-Alone Forms: My [facility], Smoking Cessation Medications and DC Order Prescriptions: New acyclovir 800 mg tablet 800 mg PO TID Qty: 5 RF: 0 methylprednisolone [Medrol (Polo)] 4 mg tablets,dose pack 4 mg PO DIRECTED 6 Days Qty: 21 RF: 0 Continued sumatriptan succinate 50 mg tablet See Rx Instructions PO .COMPLEX Qty: 14 RF: 0 acetaminophen [Tylenol] 325 mg Tablet 325 mg PO QID PRN (Reason: Pain) RF: 0 allopurinol 300 mg tablet 300 mg PO QAM RF: 0 escitalopram oxalate 10 mg tablet 10 mg PO QAM RF: 0 Discontinued prednisone 20 mg tablet See Rx Instructions .ROUTE .COMPLEX 4 Days Qty: 6 RF: 0 Discharge Orders: Discharge Order (Routine); Ordered 04/21/19 Ordered By: Amber Avalos Admission Data Admit Date/Time: 04/16/19 18:33 Attending Provider: Perry Brizuela Admit Provider: Perry Clark Primary Care Provider: Nichol Jenkins Other Providers: Perry Clark Other Interventions: Discharge Summary Assessment (RN) Last Done: 04/21/19 12:17 DC Date/Time DO NOT enter until pt leaves facility: 04/21/19 12:57 Supervising Physician Co-Signing Physician Notes Attending Attestation and Discharge Note: Pt seen/examined, chart reviewed in detail, discharge care plan d/w MELISSA Avalos. I agree w/ the rojas components of her discharge documentation. 33yo male with history of migraines and gout who presented with intractable headache. Underwent LP in the emergency department just prior to admission; CSF cell counts revealed WBCs of 14. Admitted for concern of meningitis. CSF culture remained negative. HSV PCR from CSF was negative. Serum Lyme testing was negative. CSF lyme testing was negative. Monospot was negative. The patient's main complaint during the stay was headache. This was likely a status migraine along with pain from the meningitis itself. The most effective medication for his headache was imitrex SC. Once his headache was better controlled he was fit for discharge. The patient had intermittent hearing changes from the right ear. When his headache was at its worst the hearing was the worst. At discharge his hearing was near-normal. I was uncertain if the hearing changes were due to the migraine or from his meningitis. Suspect the former. The patient had no radiographic evidence of encephalitis on MRI brain during this stay. If hearing changes persist he should see ENT +/- neurology. Discharge diagnosis - viral meningitis along with status migraine. Pending labs - EBV titers, CSF enterovirus culture. Discharge exam: gen - NAD, nontoxic, looks good eyes - PERRL neck - supple, no meningismus HEENT - hearing b/l symmetric heart - RRR s1 s2 no murmur lungs - CTA b/l abd - soft ext - no edema neuro - strength 5/5 x 4 exts; negative Babinski's b/l Perry Brizuela MD
[2019-04-22 13:23] LABS: Epstein Barr Virus Early Ag Ab <9.00 U/mL
== END 2019-04-21 12:57 | disposition home or self-care (01) | DRG 76 ==
LOC: ED 10:23 → SUATTDRO 18:33 → 3W 18:33